=== PATIENT | female | born 1985 | race Caucasian/White ===

== ENCOUNTER 2022-03-13 22:32 | Outpatient (REF) | payer BC, SELFPAY ==
[2022-03-14 02:47] LABS: Basophils Absolute Auto 0.04 K/uL (0.00-0.30); Basophils Percent Auto 0.5 % (0.0-3.0); Eosinophils Absolute Auto 0.07 K/uL (0.00-0.50); Eosinophils Percent Auto 0.9 % (0.0-7.0); Hematocrit 35.5 % (33.0-51.0); Hemoglobin* 11.5 gm/dL (12.0-16.0); Lymphocytes Absolute Auto 2.04 K/uL (0.90-2.90); Lymphocytes Percent Auto 25.9 % (20-44); Mean Corpuscular HGB Conc 32 gm/dL (32-36); Mean Corpuscular Hemoglobin 29 pg (26-34); Mean Corpuscular Volume 91 fL (80-100); Monocytes Percent Auto 5.7 % (0.0-11.0); Neutrophils Absolute Auto 5.29 K/uL (1.7-7.0); Platelet Count* 269 K/uL (140-440); RDW Coefficient of Variation % 12.5 % (11.5-15.5); Red Blood Count 3.91 m/uL (4.00-5.20); White Blood Count* 7.89 K/uL (4.50-11.00)
[2022-03-14 02:52] LABS: Slide Review Reflex No
[2022-03-14 02:54] LABS: Albumin* 4.4 g/dL (3.3-5.0); Chloride* 107 mmol/L (96-114); Potassium* 5.3 mmol/L (3.6-5.1); Sodium* 140 mmol/L (135-149)
[2022-03-14 02:56] LABS: Aspartate Amino Transferase* 21 U/L (12-35); Bilirubin Total* 0.5 mg/dL (0.1-1.5); Carbon Dioxide* 24 mmol/L (20-32)
[2022-03-14 02:57] LABS: Alanine Aminotransferase* 16 U/L (4-35); Alkaline Phosphatase* 64 U/L (40-150); Blood Urea Nitrogen* 28 mg/dL (5-24); Calcium* 9.1 mg/dL (8.4-10.6); Glucose* 92 mg/dL (60-115); Phosphorus* 4.4 mg/dL (2.5-4.5); Total Protein* 6.8 g/dL (6.0-8.3)
[2022-03-14 03:13] LABS: Vitamin D 25 Hydroxy* 60 ng/mL (30-80)
[2022-03-14 03:39] LABS: Creatinine* 1.8 mg/dL (0.5-1.5); Estimated Glomerular Filt Rate 37 ml/min
== END 2022-03-13 22:33 | disposition home or self-care (01) ==
LOC: LAB 22:32
PROVIDERS: Internal Medicine Nephrology
DX: N18.32 Chronic kidney disease, stage 3b (principal); N25.81 Secondary hyperparathyroidism of renal origin; D63.1 Anemia in chronic kidney disease; Q61.2 Polycystic kidney, adult type
CPT/HCPCS: 36415; 80053; 82306; 82310; 83970; 84100; 85025

== ENCOUNTER 2023-11-09 21:55 | Outpatient (REF) | payer BC, SELFPAY ==
[2023-11-09 22:39] LABS: Albumin* 4.3 g/dL (3.3-5.0); Chloride* 107 mmol/L (96-114)
[2023-11-09 22:40] LABS: Potassium* 4.4 mmol/L (3.6-5.1); Sodium* 142 mmol/L (135-149)
[2023-11-09 22:42] LABS: Alkaline Phosphatase* 64 U/L (40-150); Anion Gap 12 mEq/L (7-15); Aspartate Amino Transferase* 21 U/L (12-35); Bilirubin Total* 0.4 mg/dL (0.1-1.5); Blood Urea Nitrogen* 34 mg/dL (5-24); Carbon Dioxide* 23 mmol/L (20-32); Estimated Glomerular Filt Rate 32 ml/min; Glucose* 79 mg/dL (60-115); Total Protein* 6.9 g/dL (6.0-8.3)
[2023-11-09 22:43] LABS: Alanine Aminotransferase* 11 U/L (4-35); Phosphorus* 4.9 mg/dL (2.5-4.5)
[2023-11-09 23:00] LABS: Basophils Absolute Auto 0.03 K/uL (0.00-0.30); Basophils Percent Auto 0.3 % (0.0-3.0); Eosinophils Absolute Auto 0.11 K/uL (0.00-0.50); Eosinophils Percent Auto 1.3 % (0.0-7.0); Hematocrit 35.8 % (33.0-51.0); Hemoglobin* 11.6 gm/dL (12.0-16.0); Immature Granulocytes Abs Auto 0.01 K/uL (0.00-0.30); Immature Granulocytes Pct Auto 0.1 %; Lymphocytes Absolute Auto 1.99 K/uL (0.90-2.90); Lymphocytes Percent Auto 22.8 % (20-44); Mean Corpuscular HGB Conc 32 gm/dL (32-36); Mean Corpuscular Hemoglobin 29 pg (26-34); Mean Corpuscular Volume 91 fL (80-100); Monocytes Percent Auto 4.8 % (0.0-11.0); Neutrophils Absolute Auto 6.18 K/uL (1.7-7.0); Neutrophils Percent Auto 70.7 % (42.0-72.0); Platelet Count* 268 K/uL (140-440); RDW Coefficient of Variation % 12.9 % (11.5-15.5); Red Blood Count 3.95 m/uL (4.00-5.20); Vitamin D 25 Hydroxy* 63 ng/mL (30-80); White Blood Count* 8.74 K/uL (4.50-11.00)
[2023-11-09 23:01] LABS: Slide Review Reflex No
== END 2023-11-09 21:56 | disposition home or self-care (01) ==
LOC: NPINS 21:55
PROVIDERS: Visit Provider Internal Medicine Nephrology
DX: Q61.2 Polycystic kidney, adult type (principal); I10 Essential (primary) hypertension
CPT/HCPCS: 80053; 82306; 83970; 84100; 85025

== ENCOUNTER 2025-02-09 16:45 | Outpatient (CLI) | payer BC, SELFPAY ==
--- NOTE | 2025-02-09 17:00 | CRLHL7_ITS ---
For Patients: As a result of the Century Cures Act, medical imaging exams and procedure reports are released immediately into your electronic medical record. You may view this report before your referring provider. If you have questions, please contact your health care provider. INDICATION: BILATERAL SCREENING MAMMOGRAM, ASYMPTOMATIC 39 Y/O FEMALE COMPARISON: BASELINE TECHNIQUE: Digital mammogram in CC and MLO projections including computer-aided detection (CAD) and tomosynthesis. BREAST COMPOSITION: There are scattered areas of fibroglandular density. FINDINGS: No suspicious findings. ASSESSMENT: BI-RADS 2 Benign RECOMMENDATION: Annual screening mammogram. A lay language report of this examination will be provided to the patient. Dictated by: Judson Watson MD @ 02/10/2025 09:45:18 (Electronically Signed)
== END 2025-02-09 16:46 | disposition home or self-care (01) ==
LOC: MAMMO 16:46
PROVIDERS: Visit Provider Obstetrics & Gynecology
DX: Z12.31 Encounter for screening mammogram for malignant neoplasm of breast (principal)
CPT/HCPCS: 77063; 77067